=== PATIENT | female | born 2000 | race Caucasian/White ===

== ENCOUNTER 2024-03-09 17:10 | Emergency (ER) | payer BC ==
[~2024-03-09] VITALS: Ht 157.5 cm; Wt 54.4 kg
[2024-03-09 19:39] VITALS: O2SAT 98
[2024-03-09] MEDS: ALBUTEROL FS 2.5 MG/3 ML VIAL.NEB NEB ONE (19:39)
[2024-03-09] MEDS ORDERED: predniSONE 20 MG TABLET ONE (19:43)
[2024-03-09] MEDS ORDERED: ALBUTEROL FS 2.5 MG/3 ML VIAL.NEB ONE (19:44)
[2024-03-09] MEDS: predniSONE 20 MG TABLET PO ONE (19:47)
[2024-03-09 19:54] VITALS: O2SAT 100
[2024-03-09] MEDS ORDERED: PRED20TA PO (20:13)
[2024-03-09] MEDS ORDERED: ALBU18HF2 INH (20:13)
[2024-03-09] MEDS ORDERED: AZIT250T13 PO (20:13)
[2024-03-09 20:20] VITALS: BP 107/81; TEMP 98.1; O2SAT 100
== END 2024-03-09 20:21 | disposition home or self-care (01) ==
LOC: ER 17:21
DX: J20.9 Acute bronchitis, unspecified (principal); R05.9 Cough, unspecified
CPT/HCPCS: 99285; 71100; 94640; J7512

== ENCOUNTER 2025-05-21 19:28 | Emergency (ER) | payer BC ==
[~2025-05-21] VITALS: Ht 157.5 cm; Wt 56.7 kg
[~2025-05-21 19:28] MED LIST: ALBU18HF2 INH; AZIT250T13 PO; PRED20TA PO
[2025-05-21] MEDS ORDERED: ACETAMINOPHEN 325 MG TABLET ONE (20:20)
[2025-05-21] MEDS: ACETAMINOPHEN 325 MG TABLET PO ONE (20:39)
[2025-05-21] MEDS ORDERED: FLUT16SP BNOSTRILS (21:38)
[2025-05-21 22:10] VITALS: BP 125/80; TEMP 98; O2SAT 99
== END 2025-05-21 22:11 | disposition home or self-care (01) ==
LOC: ER 19:31
DX: S02.2XXA Fracture of nasal bones, initial encounter for closed fracture (principal); Z79.52 Long term (current) use of systemic steroids; W54.1XXA Struck by dog, initial encounter; Y93.89 Activity, other specified; Y92.89 Other specified places as the place of occurrence of the external cause; Y99.8 Other external cause status
CPT/HCPCS: 70486-TC